=== PATIENT | female | born 1945 | race African-American/Black ===

== ENCOUNTER → 2017-01-12 | Outpatient (CLI) | payer OTHER ==
[2016-03-11 10:27] VITALS: BP 122/54
[~2017-01-12] MED LIST: AMLO10TA2 PO; EZET10TA18 PO; FAMO-63 PO; HYDR25TA9 PO; LUBI8CAP4 PO; MECL12.52 PO; ONDA4TAB7 PO; RAMI10CA PO; TRAM50TA PO; VERA40TA PO
== END | disposition home or self-care (01) ==
LOC: KCIC MAMMO 15:35
PROVIDERS: ATTEND Family Medicine
DX: Z12.31 Encounter for screening mammogram for malignant neoplasm of breast (principal)
CPT/HCPCS: 77063; G0202; 77067

== ENCOUNTER → 2018-01-08 | Outpatient (CLI) | payer OTHER ==
[2016-03-11 10:27] VITALS: BP 122/54
[~2018-01-08] MED LIST changes: -AMLO10TA2 PO; +AMLO10TA6 PO; -RAMI10CA PO; +RAMI10CA53 PO
--- NOTE | 2018-01-08 13:08 | KCIC ---
Bilateral diagnostic digital mammograms with 3-D tomosynthesis: Reason for examination: Generalized left breast pain intermittent for one and half months. Comparison is made to previous studies dated 01/12/2017 and 12/14/2015. Bilateral mammograms in CC and oblique projections were obtained with 2-D imaging and 3-D tomosynthesis imaging on a Siemens Inspiration unit and reviewed on the workstation. Interpretation was made with the benefit of CAD. The skin and nipples show no abnormalities. No abnormal axillary lymph nodes are seen. The breast parenchyma is extremely dense. (Breast density: Category D.) There is suggestion of a small nodular density medially in the right breast on cc view and also suggestion of some subtle architectural distortion suggested at the 10:00 position posteriorly in the right breast. There is a small nodular density suggested in the left breast probably at approximately the 6:00 B position. Further evaluation with ultrasound is recommended. There are no other dominant masses, suspicious calcifications or architectural distortion. Impression: Dense breast parenchyma. Nodular densities suggested bilaterally. Ultrasound to follow. Your patient's mammogram demonstrates that she has dense breast tissue (breast density category C or D), which could hide abnormalities, and if she has other risk factors for breast cancer that have been identified, she might benefit from supplemental screening tests that may be suggested by you as her ordering physician. Dense breast tissue, in and of itself, is a relatively common condition. Therefore, this information is not provided to cause undue concern, but rather to raise your awareness and to promote discussion with your patient regarding the presence of other risk factors, in addition to dense breast tissue. Your patient's mammography results will be sent to her. BI-RAD Category 0: Incomplete. Needs additional imaging evaluation. Bilateral breast ultrasound: Bilateral whole breast ultrasound including evaluation of all 4 quadrants and the retroareolar and axillary regions of both breasts was performed. The right breast shows dense fibroglandular tissue with some ductal ectasia. No discrete cystic or solid nodules or architectural distortions are evident to correspond with the areas of mammographic concern. The left breast shows small cysts measuring 5.9 and 4.5 mm in size at the 6:00 position 3 cm from the nipple. No other cystic or solid lesions are seen. No abnormal appearing lymph nodes are seen in the left axilla. IMPRESSION: Small cysts at the 6:00 position 3 cm from the nipple measuring 5.9 and 4.5 mm in size. No suspicious abnormalities are seen in either breast. Recommend routine mammographic follow-up. BI-RADS Category 2: Benign. "Our facility is accredited by the [employer] Mammography [employer]." This patient's information has been entered into a reminder system for the patient to be notified with the results of her examination and a target date for the next mammogram. Electronically signed by: Marely Roth MD (01/08/2018 1:05 PM) [id number]
== END | disposition home or self-care (01) ==
LOC: KCIC MAMMO 09:53
PROVIDERS: ATTEND Family Medicine
DX: N60.02 Solitary cyst of left breast (principal); I10 Essential (primary) hypertension; Z90.710 Acquired absence of both cervix and uterus; Z88.5 Allergy status to narcotic agent; Z88.6 Allergy status to analgesic agent; Z82.49 Family history of ischemic heart disease and other diseases of the circulatory system
CPT/HCPCS: 76641; 77066; G0279; 77062